=== PATIENT | male | born 1995 | race Caucasian/White ===

== ENCOUNTER 2020-05-24 14:16 | Emergency (ER) | payer OTHER, SELFPAY ==
[2020-05-24 14:22] VITALS: BP 149/95; PULSE 89; RESP 17; TEMP 36.5; O2SAT 99
--- NOTE | 2020-05-24 14:30 | DI.RAD_ITS ---
EXAM: XR FOOT RT COMPLETE CLINICAL HISTORY: stepped on nail. TECHNIQUE: 2D digital imaging was performed. COMPARISON: No exams were available for comparison FINDINGS: There is no evidence of fracture nor diastasis of the Lisfranc joint. Bipartite medial sesamoid bone s subjacent to the great toe metatarsal head noted. This is slightly asymmetric and correlation with any pain over this area is recommended. No hallux valgus. No degenerative changes nor erosions viola dent. No foreign body evident. IMPRESSION: Bipartite sesamoid as described above. Correlation with site of tenderness is recommended. Otherwise unremarkable. DATA REPOSITORY: RADIATION DOSE DELIVERED:
--- NOTE | 2020-05-24 15:10 | DI.VRAD_ITS ---
PROCEDURE INFORMATION: Exam: XR Right Foot Complete Exam date and time: 05/24/2020 3:03 PM Age: 25 years old Clinical indication: Other: Stepped on nail TECHNIQUE: Imaging protocol: XR Right foot. Views: 3 or more views. COMPARISON: No relevant prior studies available. FINDINGS: Bones/joints: Normal. Soft tissues: Normal. IMPRESSION: No acute findings. Dictated and Authenticated by: Kj Mann MD. Ordering:FAY Jesus MD
--- NOTE | 2020-05-24 15:12 | ED.GENADUL_ITS ---
Discharge Plan Disposition Patient Disposition: HOME Condition: Stable Discharge Details Clinical Impression: Puncture wound of plantar aspect of right foot Primary Care Provider: Adeel Denson ED Provider: Edin Villafuerte Home Meds and New Rx's Prescriptions: New ciprofloxacin HCl [Cipro] 500 mg tablet 500 mg PO BID Qty: 20 RF: 0 Discharge Instructions Instructions: Puncture Wound (ED) Additional Instructions: Cipro as directed. [id number] Tylenol and/or Motrin as directed for discomfort. Keep the area clean and dry, you may apply antibiotic ointment daily. Please watch for new or worsening symptoms and return to the ER for any concerns. I do recommend reaching out your primary care provider tomorrow for outpatient follow-up. Medical Decision Making 25-year-old gentleman who is up-to-date on his tetanus status, presents with a nail stuck through his shoe into his foot. I was able to easily remove the nail using pliers. Shoe and sock then removed to evaluate foot. Puncture wound present. Will thoroughly clean irrigate. Will obtain x-ray to rule out bony abnormality or foreign body. Lastly will initiate Cipro antibiotic therapy. X-ray unremarkable. Initial dose of Cipro given. Patient has no additional questions or concerns and is comfortable discharge at this time Imaging Data Radiologic Study: Attestation: I personally reviewed and interpreted this imaging study as follows: Radiologist's impression: No acute findings of the right foot HPI General Mode of arrival: ambulatory . Date/Time Provider Initiated Documentation: 05/24/20 14:40 . Limitations to Documentation: no limitations . Information obtained by: patient . HPI Narrative: This is a 25-year-old male, no significant past medical history, who stepped on a nail when doing home medications just prior to arrival. The nail did go through his rubber soled shoes of his boot. Denies any other injury, numbness, tingling, weakness. Tetanus is up-to-date. No additional questions or concerns. Related Data Home Medications Medication Instructions Recorded Confirmed ciprofloxacin HCl [Cipro] 500 mg PO BID #20 tab 05/24/20 Previous Rx's Medication Instructions Recorded ciprofloxacin HCl [Cipro] 500 mg PO BID #20 tab 05/24/20 Allergies Allergy/AdvReac Type Severity Reaction Status Date / Time No Known Allergies Allergy Unverified 05/24/20 14:28 General Stated Complaint: Orthopedic NIA: 4 Review of Systems Constitutional Constitutional: Denies weakness Musculoskeletal Musculoskeletal: Denies arthralgias, Denies numbness and Denies tingling Integumentary/Breasts Skin/Breast: Denies erythema Neurologic Neurologic: Denies numbness, Denies tingling and Denies weakness COUNTS INCLUDE 234 BEDS AT THE [facility] Social History Smoking/Tobacco Use Status: Current-Occasional Tobacco Type: cigarettes Smoking risk assessment performed?: Yes Drug use: Never Substance use type: does not use Do you feel safe at home: Yes Do you feel safe in your relationship?: Yes Exam Const General: cooperative, healthy appearing, comfortable and no acute distress Orientation: alert and awake HENMT Head: normal to inspection, normocephalic and atraumatic Eyes General: appearance normal, both eyes and all related structures Eyelids: eyelids normal Conjunctivae: conjunctivae normal Neck Neck: normal visual inspection, trachea midline and supple Resp Effort & Inspection: normal respiratory effort and able to speak in complete sentences Cardio Rate: regular rate Rhythm: regular rhythm Skin General skin exam: no rashes or lesions noted Neuro General: patient alert, patient awake, moves all extremities and no focal motor deficits Cognition: normal cognition Speech: speech normal Gait: antalgic Motor: muscle tone normal throughout Sensory Exam: no sensory deficits noted Extrem General: full ROM and capillary refill normal Right lower extremity: foot Details: normal capillary refill, tenderness, toes with normal ROM, no edema, vascular exam Details: dorsalis pedis pulse present and normal capillary refill and tendon exam Details: active flexion normal and active extension normal; no unusual warmth and no laceration Ankle/foot/toe images: 1. The puncture wound. No obvious bleeding, erythema, warmth, foreign body. Minimal discomfort to palpation Other: Patient presented wearing his work boots. There was a silver nail that was going through the rubber soled shoe into his foot. I was able to remove the nails using pliers easily. Nails approximately 1/2 inch long. Shoe and socks were then removed for further evaluation. Psych Appearance: grossly normal Mental Status: mental status grossly normal Course Vital Signs Vital signs: Vital Signs Temperature 36.5 C 05/24/20 14:22 Pulse 89 05/24/20 14:22 Respiratory Rate 17 05/24/20 14:22 Blood Pressure 149/95 H 05/24/20 14:22 Pulse Oximetry 99 05/24/20 14:22 Temperature 36.5 C 05/24/20 14:22 Temperature Source Temporal Artery Scan 05/24/20 14:22 Pulse 89 05/24/20 14:22 Respiratory Rate 17 05/24/20 14:22 Blood Pressure 149/95 H 05/24/20 14:22 Blood Pressure Position Sitting 05/24/20 14:22 Pulse Oximetry 99 05/24/20 14:22 Oxygen Delivery Method Room Air 05/24/20 14:22 Oxygen Flow Rate 0 05/24/20 14:22
[2020-05-24] MEDS: Ciprofloxacin 500 MG TAB PO (15:19)
== END 2020-05-24 15:52 | disposition home or self-care (01) ==
PROVIDERS: Emergency Provider Physician Assistant; PCP Internal Medicine
DX: S91.341A Puncture wound with foreign body, right foot, initial encounter (principal); W45.0XXA Nail entering through skin, initial encounter
CPT/HCPCS: 99283; 73630

== ENCOUNTER 2023-08-07 17:37 | Outpatient (REF) | payer OTHER, SELFPAY ==
[2023-08-08 19:27] LABS: HIV-1/2 Ag & Ab Screen Negative (Negative)
[2023-08-08 19:52] LABS: Hepatitis C Ab w Rflx HCV PCR Negative (Negative)
[2023-08-09 10:27] LABS: Syphilis Serology (RPR) Negative (Negative)
[2023-08-09 15:14] LABS: Chlamydia Result Negative (Negative); GC Result Negative (Negative)
== END 2023-08-07 17:38 | disposition home or self-care (01) ==
LOC: NCHCN 17:37
PROVIDERS: PCP Internal Medicine; Visit Provider Family Medicine
DX: Z00.00 Encounter for general adult medical examination without abnormal findings (principal); Z11.3 Encounter for screening for infections with a predominantly sexual mode of transmission; Z11.4 Encounter for screening for human immunodeficiency virus [HIV]; Z11.59 Encounter for screening for other viral diseases
CPT/HCPCS: 86803; 87389; 87491; 87591; 86592